=== PATIENT | female | born 1990 | race Caucasian/White ===

== ENCOUNTER 2016-11-12 03:13 | Observation (INO) ==
[2016-11-12] MEDS ORDERED: Terbutaline 1 MG/ML VIAL SQ ONE (03:35)
--- NOTE | 2016-11-12 04:35 | OB/GYN Progress Note ---
Date of Encounter: 11/12/16 Time of Encounter: 04:32 - Assessment and Plan (1) 33 weeks gestation of Current Visit: Yes Status: Acute (2) labor in third trimester Current Visit: Yes Status: Acute Pt presented appearing quite uncomfortable with uc's q 3-5 min . She responded well to Brethine 0.25mg sq and now is quite comfortable. Her cervical exam is very reassuring. Will check ccua. Qualifiers: labor delivery status: without delivery Qualified Code(s): O60.03 - labor without delivery, third trimester Subjective - Subjective Principal diagnosis: 33 weeks , labor Interval history: 26 yo female presents to L&D where she was working this evening with c/o uc 's that were painful q 3-5 min. She denies VB or LOF. This preg complicated only by very early vaginal bleeding. She has no h/o PTL with prior pregnancies. She reports probable poor po hydration during the day but drank alot of fluid during her shift. No UTI sx's. Objective - Vital Signs Vital Signs: Intake and Output 11/11/16 11/11/16 11/12/16 15:59 23:59 07:59 Other: Weight 64.864 kg Patient Weight 11/12/16 23:59 Weight 64.864 kg - Exam FHR: category 1 Auscultation: bilateral: normal Abdomen: Present: gravid Cervical dilation: cl Cervix effacement: 70 station: -2 Comments: post
[2016-11-12 05:57] LABS: Bilirubin,Urine Negative (Negative); Blood,Urine Negative (Negative); Clarity,Urine Clear (Clear); Color,Urine Yellow (Yellow); Glucose,Urine (UA) 500 mg/dL (Normal); Ketones,Urine 15 mg/dL (Negative); Leukocyte Esterase,Urine Negative (Negative); Nitrite,Urine Negative (Negative); PH,Urine 6.5 pH Units (5.0-8.0); Protein,Urine Negative (Neg-Trace); Specific Gravity,Urine 1.021 (1.010-1.025); Urobilinogen,Urine Normal (Normal)
== END 2016-11-12 06:10 | disposition home or self-care (01) ==
LOC: 1NENULAB
PROVIDERS: ADMIT Obstetrics & Gynecology; ATTEND Obstetrics & Gynecology

== ENCOUNTER → 2016-11-13 07:40 | Observation (INO) ==
--- NOTE | 2016-11-12 19:42 | OB/GYN Progress Note ---
Date of Encounter: 11/12/16 Time of Encounter: 19:37 - Assessment and Plan (1) 33 weeks gestation of Current Visit: No Status: Acute (2) labor in third trimester Current Visit: No Status: Acute Pt continues to have contractions on monitor. Discussed with Dr. Bocanegra will given terbutaline sq and po and reevaluate in 1 hour. Contractions again started about a half hour after terbutaline. Cervical exam 1/ long/high, was closed on exam yesterday. Discussed with Dr. Bocanegra will observe overnight, give 6gm magnesium bolus, and monitor. Qualifiers: labor delivery status: without delivery Qualified Code(s): O60.03 - labor without delivery, third trimester Subjective - Subjective Interval history: 33+0 weeks presents for betametasone, but complains of continuing contractions. Pt reports good movement, denies vaginal bleeding or leaking of fluid. Antepartum ROS: movement normal, contractions, no new complaints, no loss of fluid, no vaginal bleeding Objective - Exam FHR: auscultation normal FHR comments: baseline 145 Auscultation: bilateral: normal Abdomen: Present: normal appearance, soft, gravid Uterus: Present: normal Cervical dilation: 1/long/high
--- NOTE | 2016-11-13 07:11 | OB/GYN Progress Note ---
Date of Encounter: 11/13/16 Time of Encounter: 07:04 - Assessment and Plan (1) 33 weeks gestation of Current Visit: No Status: Acute (2) labor in third trimester Current Visit: No Status: Acute Pt continues to have contractions on monitor. Discussed with Dr. Bocanegra will given terbutaline sq and po and reevaluate in 1 hour. Contractions again started about a half hour after terbutaline. Cervical exam 1/ long/high, was closed on exam yesterday. Discussed with Dr. Bocanegra will observe overnight, give 6gm magnesium bolus, and monitor. Pt rested overnight. continues to have contractions, cervical exam remains unchanged 1/long/high. Discussed with Dr. Bocanegra. Okay to discharge to home, after dose of po terbutaline, will send rx for po terbutaline q8 PRN. Taken off work for now. 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 Qualifiers: labor delivery status: without delivery Qualified Code(s): O60.03 - labor without delivery, third trimester Subjective - Subjective Interval history: Pt resting in bed. Pt states she feels contractions that are somewhat uncomfortable. Reports good movement, denies vaginal bleeding or leaking of fluid Antepartum ROS: movement normal, contractions, no loss of fluid, no vaginal bleeding Objective - Vital Signs Vital Signs: Intake and Output 11/12/16 11/12/16 11/13/16 15:59 23:59 07:59 Intake Total 204 / 204 Balance 204 / 204 Intake: IV Fluids 204 / 204 Magnesium Sulfate 2 GM In 104 / 104 Dextrose 5% 100 ML @ 208 mls/hr IVPB ONCE ONE Rx# :[id number] Magnesium Sulfate Premix 100 / 100 4gm/100mL 4 gm In 100 ml As IVPB .STK-MED ONE Rx#: [id number] Other: Weight 64.3 kg - Exam FHR: auscultation normal FHR comments: Tracing has been reactive during night.
[~2016-11-13 07:40] MED LIST: Magnesium Sulfate 2 GM in D5% in Water 100 ML IVPB ONE; Ringers Solution, Lactated 1,000 ML ONE; Terbutaline 1 MG/ML VIAL SQ ONE
== END | disposition home or self-care (01) ==
LOC: 1NENULAB
PROVIDERS: ADMIT Obstetrics & Gynecology; ATTEND Obstetrics & Gynecology

== ENCOUNTER 2016-11-13 19:34 | Observation (INO) ==
[2016-11-13] MEDS ORDERED: Betamethasone Acet/SodPhos 6 MG/ML MDV IM SCH (20:00)
--- NOTE | 2016-11-13 20:56 | Discharge Summary ---
Date of Encounter: 11/13/16 Time of Encounter: 20:56 - Discharge Diagnosis (1) 33 weeks gestation of Priority: Primary Status: Acute Comments: admitted for second dose of betamethasone (2) labor in third trimester Priority: Secondary Status: Acute Comments: no cervical change since last exam Qualifiers: labor delivery status: without delivery Qualified Code(s): O60.03 - labor without delivery, third trimester (3) NST (non-stress test) reactive on surveillance Priority: Secondary Status: Acute Comments: FHR baseline 145 bpm moderate variability +15x15 accels no decels noted. irregular contractions - Discharge Medications Home Medications: Ferrous Sulfate 325 mg PO DAILY 11/12/16 [History] Vit/Iron Fumarate/FA [ Tablet] 1 each PO DAILY 11/12/16 [ History] Terbutaline [Brethine] 2.5 mg PO TID #30 tablet 11/12/16 [Rx] Allergies/Adverse Reactions: Allergies No Known Allergies Allergy (Verified 11/12/16 03:30) Date of admission: 11/13/16 19:50 Discharging clinician: Niki Vuong Anticipated date of discharge: 11/13/16 - Patient Status Disposition: Home, Self-Care Condition: Good Functional capacity at discharge: independent ambulation - Discharge Instructions Follow Up With: Magdalene Siddiqi DO [Partnered Physician] - - Diet and Activity Activity: increase activity as tolerated Diet: regular diet Hospital Course [employer] Hospital course: Patient is 26 y/o at 33w1d presents to labor and delivery for second betamethasone shot. Patient reports contractions that have continued throughout the day. Patient states she took her 2.5mg terbutaline po at 1900. Patient denies LOF or VB. Patient reports +FM. GBS culture was collected prior to SVE. No cervical change was noted. Discussed Patient with Dr. Benz. Plan to discharge home with labor precautions. Patient denies any questions or concerns. Time Attestation: Total time spent providing and/or coordinating discharge services: Time Spent: Less than 30 minutes Exam - Constitutional General appearance IM: A&O X 3, pleasant, answers questions appropriately - Respiratory Respiratory exam: Present: CTAB - Cardiovascular Cardiovascular exam IM: Present: RRR, +S1, +S2 - GI/Abdominal GI/Abdominal exam IM: normal bowel sounds - Extremities Exam Extremities exam IM: Present: full ROM, normal capillary refill, normal inspection - Neurological Exam Neurological exam: alert, oriented X3, reflexes normal - Other Additional findings: FHR 145 bpm moderate variability +15x15 accels no decels noted. Cat. 1 tracing Contractions irregular. SVE 1.5/50/-3. Group B Strep culture collected prior to exam. - VTE Reasons for not Prescribing Prophylaxis: Treatment not Indicated - Low risk for VTE
== END 2016-11-13 21:16 | disposition home or self-care (01) ==
LOC: 1NENULAB 19:34 → LANDD 19:34
PROVIDERS: ADMIT Advanced Practice Midwife; ATTEND Advanced Practice Midwife

== ENCOUNTER 2020-02-17 15:58 | Inpatient (IN) ==
[~2020-02-17 15:58] MED LIST changes: +*HR* Midazolam HCl 2 MG/2 ML VIAL ONE; +Bupivacaine/PF 0.75% in Dex 2 ML AMPUL INFILT ONE; +EPHEDrine 50 MG/ML VIAL ONE; +Famotidine 20 MG/2 ML VIAL IVP ONE; -Magnesium Sulfate 2 GM in D5% in Water 100 ML IVPB ONE; +Metoclopramide 10 MG/2 ML VIAL IVP ONE; +Ondansetron 4 MG/2 ML VIAL ONE; +Ringers Solution, Lactated 1,000 ML IVC ONE; -Terbutaline 1 MG/ML VIAL SQ ONE
[2020-02-17] MEDS ORDERED: Ringers Solution, Lactated 1,000 ML IVC SCH (16:00)
[2020-02-17 16:02] VITALS: BP 124/72
[2020-02-17 16:30] LABS: Basophils % 0.2 %; Eosinophils # 0.1 K/mcL (0.0-0.6); Eosinophils % 0.7 %; Hematocrit 39.7 % (35.3-44.9); Hemoglobin 12.9 g/dL (11.5-15.4); Immature Granulocytes % 0.8 % (0-4); Lymphocytes # 2.1 K/mcL (0.6-4.6); Lymphocytes % 25.1 %; Mean Corpuscular HGB Conc 32.5 g/dL (31.6-35.5); Mean Corpuscular Hemoglobin 30.9 pg (28.0-33.3); Mean Corpuscular Volume 95.2 fL (83.0-100.0); Mean Platelet Volume 10.9 fL (9.4-12.4); Monocytes # 0.6 K/mcL (0.0-1.3); Monocytes % 7.1 %; Neutrophils # 5.5 K/mcL (1.6-8.9); Platelet Count 228 K/mcL (140-400); Red Blood Count 4.17 M/mcL (3.82-4.97); Red Cell Distribution Width 13.3 % (11.5-14.5); Segmented Neutrophils % 66.1 %; White Blood Count 8.3 K/mcL (4.3-11.1)
[2020-02-17] MEDS ORDERED: Terbutaline 1 MG/ML VIAL SQ ONE (16:39)
[2020-02-17 16:40] LABS: Amphetamine Screen,Urine Negative ng/mL (Cutoff=1000); Barbiturate Screen,Urine Negative ng/mL (Cutoff=200); Benzodiazepines Screen,Urine Negative ng/mL (Cutoff=200); Cannabinoid Screen,Urine Negative ng/mL (Cutoff = 50); Cocaine Screen,Urine Negative ng/mL (Cutoff= 300); Opiate Screen,Urine Negative ng/mL (Cutoff=300); Phencyclidine Screen,Urine Negative ng/mL (Cutoff=25)
== END 2020-02-17 22:39 | disposition home or self-care (01) | DRG 833 ==
LOC: 1NENULAB
PROVIDERS: ADMIT Student in an Organized Health Care Education/Training Program; ATTEND Student in an Organized Health Care Education/Training Program

== ENCOUNTER → 2020-02-19 22:39 | Observation (INO) ==
[2020-02-19 22:23] VITALS: BP 105/60
== END | disposition home or self-care (01) ==
LOC: 1NENULAB
PROVIDERS: ADMIT Student in an Organized Health Care Education/Training Program; ATTEND Student in an Organized Health Care Education/Training Program

== ENCOUNTER → 2020-02-21 15:22 | Observation (INO) | END | disposition home or self-care (01) | LOC: 1NENULAB | PROVIDERS: ADMIT Obstetrics & Gynecology; ATTEND Obstetrics & Gynecology ==

== ENCOUNTER 2020-02-24 20:03 | Inpatient (IN) ==
[~2020-02-24 20:03] MED LIST changes: +*HR* FentaNYL (PF) 100 MCG/2 ML VIAL IVP PRN; -*HR* Midazolam HCl 2 MG/2 ML VIAL ONE; +Azithromycin 500 MG in 0.9 % Sodium Chloride 250 ML IVPB ONE; -Bupivacaine/PF 0.75% in Dex 2 ML AMPUL INFILT ONE; -EPHEDrine 50 MG/ML VIAL ONE; -Famotidine 20 MG/2 ML VIAL IVP ONE; +Famotidine 20 MG/2 ML VIAL IVP PRN; +Lidocaine 1% 20 ML MDV INFILT PRN; -Metoclopramide 10 MG/2 ML VIAL IVP ONE; +Metoclopramide 10 MG/2 ML VIAL IVP PRN; +Naloxone 0.4 MG/ML INJ IVP PRN; +Ondansetron 4 MG/2 ML VIAL IVP PRN; -Ondansetron 4 MG/2 ML VIAL ONE; -Ringers Solution, Lactated 1,000 ML IVC ONE; -Ringers Solution, Lactated 1,000 ML ONE
[2020-02-24] MEDS ORDERED: Ringers Solution, Lactated 1,000 ML IVC SCH (20:15)
[2020-02-24] MEDS ORDERED: Ringers Solution, Lactated 1,000 ML ONE (20:23)
[2020-02-24 20:39] LABS: Amphetamine Screen,Urine Negative ng/mL (Cutoff=1000); Barbiturate Screen,Urine Negative ng/mL (Cutoff=200); Benzodiazepines Screen,Urine Negative ng/mL (Cutoff=200); Cannabinoid Screen,Urine Negative ng/mL (Cutoff = 50); Cocaine Screen,Urine Negative ng/mL (Cutoff= 300); Opiate Screen,Urine Negative ng/mL (Cutoff=300); Phencyclidine Screen,Urine Negative ng/mL (Cutoff=25)
[2020-02-24 20:43] LABS: Basophils % 0.3 %; Eosinophils # 0.1 K/mcL (0.0-0.6); Eosinophils % 0.8 %; Hematocrit 36.7 % (35.3-44.9); Immature Granulocytes % 0.9 % (0-4); Lymphocytes # 2.4 K/mcL (0.6-4.6); Lymphocytes % 23.4 %; Mean Corpuscular HGB Conc 32.7 g/dL (31.6-35.5); Mean Corpuscular Hemoglobin 30.5 pg (28.0-33.3); Mean Corpuscular Volume 93.1 fL (83.0-100.0); Mean Platelet Volume 11.2 fL (9.4-12.4); Monocytes # 0.6 K/mcL (0.0-1.3); Platelet Count 227 K/mcL (140-400); Red Blood Count 3.94 M/mcL (3.82-4.97); Red Cell Distribution Width 13.2 % (11.5-14.5); Segmented Neutrophils % 68.6 %; White Blood Count 10.3 K/mcL (4.3-11.1)
[2020-02-24] MEDS ORDERED: Epidural Premix (fent/bupiv) 110 ML EP ONE (21:35)
[2020-02-24] MEDS ORDERED: Oxytocin 20 units/ LR 1000 mL 20 UNIT/1,000 ML BAG IVC ONE (22:28)
[2020-02-25] MEDS ORDERED: Oxytocin 20 units/ LR 1000 mL 20 UNIT/1,000 ML BAG IVC ONE ×2 (01:01→01:45)
[2020-02-25] MEDS ORDERED: Lanolin 7 G OINT...G. TP PRN (01:45)
[2020-02-25] MEDS ORDERED: Acetaminophen 325 MG TABLET PO PRN (01:45)
[2020-02-25] MEDS ORDERED: Benzocaine/Menthol 56 GM AEROSOL SPRAY TP PRN (01:45)
[2020-02-25] MEDS ORDERED: Oxytocin 20 units/ LR 1000 mL 20 UNIT/1,000 ML BAG IVC SCH (01:45)
[2020-02-25] MEDS ORDERED: *HR* Nalbuphine 10 MG/ML AMPUL IV ONE (01:48)
[2020-02-25] MEDS ORDERED: Prenatal Vit/FA 1 EACH TABLET PO SCH (09:00)
[2020-02-25] MEDS: Ibuprofen 600 MG TABLET PO PRN ×2 (09:03→16:47)
[2020-02-25 17:19] VITALS: BP 99/71
== END 2020-02-25 18:39 | disposition home or self-care (01) | DRG 807 ==
LOC: 1NENULAB → 1NENUOBS 02-25 01:45
PROVIDERS: ADMIT Obstetrics & Gynecology; ATTEND Obstetrics & Gynecology